=== PATIENT | male | born 1960 | race Caucasian/White ===

== ENCOUNTER 2016-10-26 21:47 | Emergency (ER) | payer MEDICARE ==
[2016-10-26 22:58] LABS: HEMOGLOBIN 13.6 gm/dl (14.0-17.5); RED BLOOD COUNT 4.68 M/UL (4.20-5.50); WHITE BLOOD COUNT 7.3 K/UL (4.5-11.0)
[2016-10-26 23:19] LABS: BUN/CREATININE RATIO 30 (0-10)
== END 2016-10-27 04:25 | disposition home or self-care (01) ==
LOC: ER1 21:47
PROVIDERS: Family Medicine
DX: R07.89 Other chest pain (principal); Z88.8 Allergy status to other drugs, medicaments and biological substances
CPT/HCPCS: 36415; 71010; 80053; 82550; 82553; 83690; 83874; 84484; 85025; 93005; 96374; 96375; 99285; J2270; J2405; J7050; Q9963

== ENCOUNTER 2020-07-08 15:07 | Emergency (ER) | payer MEDICARE ==
[~2020-07-08 15:07] MED LIST: COREG 3.125M3.125 MG PO; IMDUR ER TAB 3030 MG PO; NORCO 5-325 TA1 EACH PO; PERCOCET 5/325 T1 EA PO; PREDNISONE 20 M20 MG PO; PRILOSEC OTC20 MG PO; TYLENOL 500 MG500 MG PO; ULTRAM50 MG PO
[2020-07-08 18:28] LABS: HEMOGLOBIN 15.4 gm/dl (14.0-17.5); RED BLOOD COUNT 5.3 M/UL (4.20-5.50); WHITE BLOOD COUNT 6.6 K/UL (4.5-11.0)
[2020-07-08 18:46] LABS: BUN/CREATININE RATIO 20 (0-10)
== END 2020-07-09 00:30 | disposition left against medical advice (07) ==
LOC: ER1 15:07
PROVIDERS: Family Medicine
DX: R10.30 Lower abdominal pain, unspecified (principal); U07.1 COVID-19; Z88.6 Allergy status to analgesic agent; Z53.20 Procedure and treatment not carried out because of patient's decision for unspecified reasons
CPT/HCPCS: 80053; 81001; 83605; 83690; 85025; 99284; Q9967; U0002